=== PATIENT | male | born 2000 | race Caucasian/White ===

== ENCOUNTER 2024-05-07 19:51 | Emergency (ER) | payer OTHER ==
[~2024-05-07] VITALS: Ht 165.1 cm; Wt 72.7 kg
[2024-05-07 20:18] VITALS: BP 108/58; PULSE 96; RESP 18; TEMP 97.9; O2SAT 95
[2024-05-07 21:19] LABS: BASOPHILS % (AUTO) 0.3 % (0.0-2.0); EOSINOPHILS % (AUTO) 0.3 % (1.0-6.0); HEMATOCRIT 42.8 % (41-53); HEMOGLOBIN 14.2 g/dL (13.5-17.5); LYMPHOCYTES # (AUTO) 0.9 K/uL (1.0-4.8); LYMPHOCYTES % (AUTO) 8.4 % (22.0-44.0); MEAN CORPUSCULAR HEMOGLOBIN 28.5 pg (26.0-34.0); MEAN CORPUSCULAR HGB CONC 33.2 G/dL (31.0-37.0); MEAN CORPUSCULAR VOLUME 86 fL (80-100); MONOCYTES # (AUTO) 0.4 K/uL (0.1-1.0); MONOCYTES % (AUTO) 4.4 % (2.0-9.0); NEUTROPHILS # (AUTO) 8.9 K/uL (1.8-7.7); PLATELET COUNT (AUTO) 353 K/uL (150-450); RED BLOOD CELL COUNT(AUTO) 4.99 MIL/uL (4.50-5.90); RED CELL DISTRIBUTION WIDTH 13.7 % (11.5-14.5); WHITE BLOOD COUNT (AUTO) 10.2 K/uL (4.5-11.0)
[2024-05-07 21:21] LABS: NEUTROPHILS % (AUTO) 86.6 % (40.0-70.0)
[2024-05-07 21:29] LABS: ANION GAP 10 mmol/L (8-16); CALCIUM, TOTAL 9.4 mg/dL (8.8-10.5); CARBON DIOXIDE 27 mmol/L (22-29); CHLORIDE 100 mmol/L (98-107); CREATININE 0.74 mg/dL (0.60-1.30); GLOMERULAR FILTR. RATE CALC > 60 mL/min (>60); GLUCOSE,RANDOM 108 mg/dL (70-110); POTASSIUM 3.8 mmol/L (3.5-5.1); SODIUM SERUM 137 mmol/L (136-145); UREA NITROGEN, BLOOD 8 mg/dL (7-18)
[2024-05-07] MEDS: BUPRENORPHINE HCL/NALOXONE HCL 8-2 MG SUBLINGUAL TABLET SL ONE (22:59)
== END 2024-05-08 02:01 ==
LOC: EMS 19:51
DX: F11.23 Opioid dependence with withdrawal (principal); F41.9 Anxiety disorder, unspecified; F14.90 Cocaine use, unspecified, uncomplicated; K92.1 Melena
CPT/HCPCS: 80048; 85025; 99283

== ENCOUNTER 2024-05-08 09:55 | Inpatient (IN) | payer OTHER ==
[~2024-05-08] VITALS: Ht 165.1 cm; Wt 65.0 kg
[2024-05-08 11:52] LABS: ANION GAP 13 mmol/L (8-16); CALCIUM, TOTAL 9.2 mg/dL (8.8-10.5); CARBON DIOXIDE 25 mmol/L (22-29); CHLORIDE 98 mmol/L (98-107); CREATININE 0.83 mg/dL (0.60-1.30); GLOMERULAR FILTR. RATE CALC > 60 mL/min (>60); GLUCOSE,RANDOM 98 mg/dL (70-110); POTASSIUM 3.8 mmol/L (3.5-5.1); SODIUM SERUM 136 mmol/L (136-145); UREA NITROGEN, BLOOD 7 mg/dL (7-18)
[2024-05-08 11:56] LABS: BASOPHILS % (AUTO) 0.2 % (0.0-2.0); EOSINOPHILS % (AUTO) 0.5 % (1.0-6.0); HEMATOCRIT 46.9 % (41-53); HEMOGLOBIN 15.5 g/dL (13.5-17.5); LYMPHOCYTES # (AUTO) 0.9 K/uL (1.0-4.8); LYMPHOCYTES % (AUTO) 10.7 % (22.0-44.0); MEAN CORPUSCULAR HEMOGLOBIN 28.5 pg (26.0-34.0); MEAN CORPUSCULAR VOLUME 86 fL (80-100); MONOCYTES # (AUTO) 0.3 K/uL (0.1-1.0); MONOCYTES % (AUTO) 3.7 % (2.0-9.0); NEUTROPHILS % (AUTO) 84.9 % (40.0-70.0); PLATELET COUNT (AUTO) 385 K/uL (150-450); RED BLOOD CELL COUNT(AUTO) 5.43 MIL/uL (4.50-5.90); RED CELL DISTRIBUTION WIDTH 13.8 % (11.5-14.5); WHITE BLOOD COUNT (AUTO) 8.2 K/uL (4.5-11.0)
[2024-05-08] MEDS: CloNIDine HCL 0.1 MG TABLET PO ONE (12:42)
[2024-05-08] MEDS: ONDANSETRON 4 MG RAPDIS TABLET PO ONE (12:42)
[2024-05-08] MEDS: DICYCLOMINE HCL 10 MG CAPSULE PO ONE (13:49)
[2024-05-08] MEDS ORDERED: METOCLOPRAMIDE HCL 5 MG/ML 2 ML VIAL IVP PRN (14:45)
[2024-05-08] MEDS ORDERED: MAGNESIUM HYDROXIDE SUSPENSION 30 ML UDCUP PO PRN (14:45)
[2024-05-08] MEDS: BUPRENORPHINE HCL/NALOXONE HCL 8-2 MG SUBLINGUAL TABLET SL ONE (14:45)
[2024-05-08] MEDS ORDERED: LOPERAMIDE HCL 2 MG CAPSULE PO PRN (14:45)
[2024-05-08] MEDS ORDERED: BISACODYL 10 MG RECTAL RECTAL SUPPOSITORY PR PRN (14:45)
[2024-05-08] MEDS ORDERED: MORPHINE SULFATE 2 MG/ML SYRINGE IVP PRN (14:45)
[2024-05-08] MEDS ORDERED: DICYCLOMINE HCL 10 MG CAPSULE PO PRN (14:45)
[2024-05-08 15:34] VITALS: BP 108/61; PULSE 90; RESP 19; TEMP 98.4; O2SAT 100
[2024-05-08] MEDS: SODIUM CHLORIDE 0.9% 1,000 ML IV ONE (15:41)
[2024-05-08 19:52] VITALS: BP 97/70; PULSE 79; RESP 20; TEMP 98.1; O2SAT 96
[2024-05-08 20:11] VITALS: BP 105/56; PULSE 90
[2024-05-08] MEDS: DOCUSATE SODIUM 100 MG CAPSULE PO SCH (20:21)
[2024-05-08] MEDS: TEMAZEPAM 15 MG CAPSULE PO SCH (20:21)
[2024-05-08] MEDS: HYDROCODONE/ACETAMINOPHEN 5-325 MG TABLET PO PRN (22:05)
[2024-05-09] MEDS: ZOLPIDEM TARTRATE 5 MG TABLET PO PRN (03:10)
[2024-05-09 05:03] VITALS: BP 102/60; PULSE 88; RESP 20; TEMP 97.7; O2SAT 100
[2024-05-09] MEDS: PANTOPRAZOLE SODIUM 40 MG DR TABLET PO SCH (08:19)
[2024-05-09 08:25] VITALS: BP 114/62; PULSE 81; RESP 18; TEMP 98.3; O2SAT 97
[2024-05-09] MEDS: ONDANSETRON HCL 4 MG/2 ML VIAL IVP PRN (08:38)
[2024-05-09] MEDS: LORazepam 2 MG/ML VIAL IVP PRN (12:39)
[2024-05-09 19:56] VITALS: BP 99/60; PULSE 94; RESP 18; TEMP 98.2; O2SAT 100
[2024-05-09] MEDS: ACETAMINOPHEN 325 MG TABLET PO PRN (20:21)
[2024-05-09 21:15] VITALS: BP 105/65; PULSE 98; RESP 18; TEMP 98; O2SAT 98
[2024-05-10] VITALS: BP 108/70; PULSE 95; RESP 20; TEMP 98.1; O2SAT 100
[2024-05-10 05:04] VITALS: BP 108/62; PULSE 68; RESP 20; TEMP 98.1; O2SAT 100
[2024-05-10 11:55] VITALS: BP 103/69; PULSE 91; RESP 14; TEMP 98.3; O2SAT 100
[2024-05-10 12:50] LABS: PH,URINE DRUG SCREEN 6.5 (5.0-8.0)
[2024-05-10 12:59] LABS: ALCOHOL, URINE DRUG SCREEN NEGATIVE (NEGATIVE); AMPHET/METH SCREEN,URINE NEGATIVE (NEGATIVE); BARBITURATE SCREEN, URINE NEGATIVE (NEGATIVE); BENZODIAZEPINES SCREEN,URINE POSITIVE (NEGATIVE); CANNABINOID SCREEN,URINE POSITIVE (NEGATIVE); COCAINE SCREEN,URINE POSITIVE (NEGATIVE); METHADONE SCREEN, URINE NEGATIVE (NEGATIVE); OPIATE SCREEN,URINE POSITIVE (NEGATIVE); PHENCYCLIDINE SCREEN,URINE NEGATIVE (NEGATIVE)
[2024-05-10] MEDS: LORazepam 2 MG/ML VIAL IVP PRN (14:34)
[2024-05-10 16:00] VITALS: BP 107/68; PULSE 94; RESP 16; TEMP 98; O2SAT 100
[2024-05-10 20:00] VITALS: BP 100/60; PULSE 64; RESP 18; TEMP 97.9; O2SAT 99
[2024-05-11 04:05] VITALS: BP 125/68; PULSE 77; RESP 18; TEMP 97.9; O2SAT 99
[2024-05-11 08:00] VITALS: BP 119/80; PULSE 83; RESP 16; TEMP 97.8; O2SAT 98
[2024-05-11 11:15] VITALS: BP 114/59; PULSE 89; RESP 16; TEMP 98.3; O2SAT 98
[2024-05-11 14:00] VITALS: BP 94/64; PULSE 88; RESP 18; TEMP 97.7; O2SAT 100
[2024-05-11 16:12] VITALS: BP 109/61; PULSE 94; RESP 18; TEMP 97.5; O2SAT 99
[2024-05-11 19:57] VITALS: BP 109/59; PULSE 91; RESP 18; TEMP 98.2; O2SAT 98
[2024-05-12 04:43] VITALS: BP 104/58; PULSE 79; RESP 18; TEMP 97.9; O2SAT 99
== END 2024-05-12 09:39 | DRG 897 ==
LOC: EMS 09:55 → EDH 14:09 → 6S 15:31 → 5S 05-09 21:10 → 6S 05-11 11:50
PROVIDERS: ADMIT Internal Medicine; ATTEND Internal Medicine
PROC: HZ2ZZZZ Detoxification Services for Substance Abuse Treatment (ICD-10-PCS; principal; 2024-05-08)
DX: F11.93 Opioid use, unspecified with withdrawal (principal); F10.10 Alcohol abuse, uncomplicated; F19.11 Other psychoactive substance abuse, in remission; Y90.9 Presence of alcohol in blood, level not specified; F17.210 Nicotine dependence, cigarettes, uncomplicated; Z79.899 Other long term (current) drug therapy
CPT/HCPCS: 80048; 80307; 85025; 99285; J2060; J2405; J7030